=== PATIENT | male | born 1950 | race Caucasian/White ===

== ENCOUNTER 2018-04-12 12:03 | Outpatient (CLI) | payer OTHER ==
--- NOTE | 2018-04-12 13:28 | RAD ---
CHEST PA AND LATERAL: Date: 04/12/18 HISTORY: 68-year-old male with history of exposure to asbestos. FINDINGS: Postop midline sternotomy. Borderline cardiomegaly. Minimal bilateral pleural thickening. Possible mi nimal pleural calcification involving the left hemidiaphragm. No pleural effusion. No confluent pneum onia. IMPRESSION: Minimal bilateral pleural thickening. Postop midline sternotomy. Possible thin pleural calcification of the region of the left hemidiaphragm. Atherosclerosis of aorta. POS: ANNIE
== END 2018-04-12 12:04 | disposition home or self-care (01) ==
LOC: BICRAD 12:03
DX: Z77.090 Contact with and (suspected) exposure to asbestos (principal); J92.9 Pleural plaque without asbestos; I70.0 Atherosclerosis of aorta
CPT/HCPCS: 71046